=== PATIENT | female | born 1960 ===

== ENCOUNTER → 2018-09-13 | Emergency (ER) | payer OTHER ==
[~2018-09-13] VITALS: Ht 160 cm; Wt 74.8 kg
[~2018-09-13] MED LIST: ASA81 MG PO; CIPRO500 MG PO; FIORICET 50-321 EACH PO; ULTRACET PO
== END | disposition home or self-care (01) ==
LOC: ER 12:34
DX: N39.0 Urinary tract infection, site not specified (principal); K21.9 Gastro-esophageal reflux disease without esophagitis; M54.16 Radiculopathy, lumbar region; M54.2 Cervicalgia; B96.29 Other Escherichia coli [E. coli] as the cause of diseases classified elsewhere